=== PATIENT | female | born 1985 | race Two or more races ===

== ENCOUNTER 2018-01-15 09:11 | Emergency (ER) | payer OTHER ==
[~2018-01-15] VITALS: Ht 157.5 cm; Wt 52.2 kg
[2018-01-15] MEDS ORDERED: ORPHENADRINE C100 MG PO (13:22)
[2018-01-15] MEDS ORDERED: NABUMETONE500 MG PO (13:22)
== END 2018-01-15 13:29 | disposition home or self-care (01) ==
LOC: ER 09:11
DX: S29.011A Strain of muscle and tendon of front wall of thorax, initial encounter (principal); S16.1XXA Strain of muscle, fascia and tendon at neck level, initial encounter; S39.012A Strain of muscle, fascia and tendon of lower back, initial encounter; V43.02XA Car driver injured in collision with other type car in nontraffic accident, initial encounter; Y93.89 Activity, other specified; Y92.488 Other paved roadways as the place of occurrence of the external cause; Y99.8 Other external cause status